=== PATIENT | female | born 1995 | race Caucasian/White ===

== ENCOUNTER 2017-09-05 19:07 | Emergency (ER) | payer OTHER ==
[2017-09-05 19:15] VITALS: BMI 37.5
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
[2017-09-05] MEDS ORDERED: TORADOL 60 MG VIAL IM ONE (22:37)
[2017-09-05] MEDS ORDERED: TORADOL 60 MG VIAL ONE (22:38)
[2017-09-05 22:40] VITALS: BP 103/56
== END 2017-09-05 22:55 | disposition home or self-care (01) ==
LOC: ER 19:14
DX: S20.20XA Contusion of thorax, unspecified, initial encounter (principal); S22.32XA Fracture of one rib, left side, initial encounter for closed fracture; V89.2XXA Person injured in unspecified motor-vehicle accident, traffic, initial encounter
CPT/HCPCS: 36415; 71111; 84702; 96372; 99282; J1885